=== PATIENT | female | born 1945 | race Caucasian/White ===

== ENCOUNTER 2018-02-16 07:05 | Emergency (ER) | payer MEDICARE, BC ==
[2018-02-16] MEDS: HYDROcodone/APAP 5/325MG 1 TAB TABLET PO (07:55)
== END 2018-02-16 09:08 | disposition home or self-care (01) ==
LOC: ER 07:05
DX: M25.552 Pain in left hip (principal); I10 Essential (primary) hypertension; E78.00 Pure hypercholesterolemia, unspecified
CPT/HCPCS: 73521; 99284

== ENCOUNTER 2018-02-20 07:11 | Emergency (ER) | payer MEDICARE, BC ==
[2018-02-20] MEDS: KETOROLAC 60 MG/2 ML INJ. IM (08:04)
[2018-02-20] MEDS: DEXAMETHASONE SOD PHOS 20 MG/5 ML VIAL. IM (08:05)
[2018-02-20] MEDS: fentaNYL PF VIAL 100 MCG/2 ML VIAL IM (08:06)
== END 2018-02-20 08:44 | disposition home or self-care (01) ==
LOC: ER 08:44
DX: M25.552 Pain in left hip (principal); F41.9 Anxiety disorder, unspecified; E78.00 Pure hypercholesterolemia, unspecified; I10 Essential (primary) hypertension
CPT/HCPCS: 96372; 99284; J1100; J1885; J3010

== ENCOUNTER → 2018-03-02 | Outpatient (CLI) | payer MEDICARE, BC | END | disposition home or self-care (01) | LOC: KCIC MRI 14:23 | DX: S76.011A Strain of muscle, fascia and tendon of right hip, initial encounter (principal); M53.3 Sacrococcygeal disorders, not elsewhere classified; M47.896 Other spondylosis, lumbar region; X58.XXXA Exposure to other specified factors, initial encounter; Y93.89 Activity, other specified; Y92.89 Other specified places as the place of occurrence of the external cause; Y99.8 Other external cause status | CPT/HCPCS: 72195 ==

== ENCOUNTER 2018-04-28 08:52 | Emergency (ER) | payer MEDICARE, BC ==
[2018-04-28 09:21] LABS: BILIRUBIN,URINE NEGATIVE (NEG); CLARITY,URINE CLEAR; COLOR,URINE YELLOW; GLUCOSE,URINE NEGATIVE (NEG); NITRITE,URINE NEGATIVE (NEG); PROTEIN,URINE NEGATIVE (NEG-TRACE); UROBILINOGEN,URINE 0.2 mg/dL (0.2 mg/dL)
[2018-04-28 09:39] LABS: BACTERIA,URINE 0 /HPF (0-FEW); RBC,URINE 0 /HPF (0-2); SQUAMOUS EPITHELIAL CELL,UR OCC /LPF; WBC,URINE 0 /HPF (0-4)
[2018-04-28 09:48] LABS: ADD MAN DIFF? NO
[2018-04-28 09:55] LABS: BASO # 0.1 x10^3/uL (0.0-0.2); BASO % 1 % (0-3); EOS % 0 % (0-3); HEMATOCRIT 41.4 % (36.0-47.0); HEMOGLOBIN 14.2 g/dL (12.0-15.5); LYMPH # 1.5 x10^3/uL (1.0-4.8); LYMPH % 21 % (24-48); MEAN CORPUSCULAR HEMOGLOBIN 33 pg (25-35); MEAN CORPUSCULAR HGB CONC 34 g/dL (31-37); MEAN CORPUSCULAR VOLUME 94 fL (79-100); MONO # 0.7 x10^3/uL (0.0-1.1); MONO % 9 % (0-9); NEUT # 5.1 x10^3uL (1.8-7.7); NEUT % 70 % (31-73); PLATELET COUNT 182 x10^3/uL (140-400); RED BLOOD COUNT 4.39 x10^6/uL (3.50-5.40); RED CELL DISTRIBUTION WIDTH 13.8 % (11.5-14.5); WHITE BLOOD COUNT 7.4 x10^3/uL (4.0-11.0)
[2018-04-28 10:07] LABS: ANION GAP 13 (6-14); BLOOD UREA NITROGEN 9 mg/dL (7-20); BUN/CREATININE RATIO 11 (6-20); CALCIUM 9.7 mg/dL (8.5-10.1); CARBON DIOXIDE 21 mmol/L (21-32); CHLORIDE 101 mmol/L (98-107); CREATININE 0.8 mg/dL (0.6-1.0); GFR 70.3; GLUCOSE 120 mg/dL (70-99); POTASSIUM 3.4 mmol/L (3.5-5.1); SODIUM 135 mmol/L (136-145)
[2018-04-28 10:15] LABS: ALBUMIN/GLOBULIN RATIO 1.3 (1.0-1.7); ALK PHOS 65 U/L (46-116); ALT (SGPT) 25 U/L (14-59); AST (SGOT) 21 U/L (15-37); MAGNESIUM 2.3 mg/dL (1.8-2.4); TOTAL BILIRUBIN 0.8 mg/dL (0.2-1.0); TOTAL PROTEIN 7.1 g/dL (6.4-8.2)
[2018-04-28 10:16] LABS: TROPONINI < 0.017 ng/mL (0.000-0.055)
[2018-04-28 10:20] LABS: FREE T4 1.39 ng/dL (0.76-1.46)
[2018-04-28 10:20] LABS: THYROID STIM HORMONE (TSH) 1.494 uIU/mL (0.358-3.74)
[2018-04-28 10:21] LABS: LACTIC ACID 2.3 mmol/L (0.4-2.0)
[2018-04-28 10:27] LABS: CKMB INDEX 1.2 % (0-4); CKMB MASS 1.1 ng/mL (0.0-3.6); CREATINE KINASE 92 U/L (26-192)
[2018-04-28] MEDS: POTASSIUM CHLORIDE 20 MEQ TABLET.ER. PO (11:04)
== END 2018-04-28 11:24 | disposition home or self-care (01) ==
LOC: ER 08:52
DX: F41.9 Anxiety disorder, unspecified (principal); I10 Essential (primary) hypertension; R53.1 Weakness; E78.00 Pure hypercholesterolemia, unspecified
CPT/HCPCS: 36415; 80053; 81001; 82553; 83605; 83735; 84439; 84443; 84484; 85025; 93005; 96374; 99285-25; J2060

== ENCOUNTER 2020-03-25 10:56 | Emergency (ER) | payer MEDICARE, BC ==
[~2020-03-25] VITALS: Ht 172.7 cm; Wt 80.0 kg
[~2020-03-25 10:56] MED LIST: CYCL10TA2 PO; HYDR-3164 PO; METH4TAB2 PO; NAPR220C4 PO
[2020-03-25] MEDS ORDERED: IV NORMAL SALINE 1000ML BAG 1,000 ML IV ONE (12:15)
[2020-03-25 12:33] LABS: BASO # 0.1 x10^3/uL (0.0-0.2); BASO % 1 % (0-3); EOS # 0.1 x10^3/uL (0.0-0.7); EOS % 1 % (0-3); HEMATOCRIT 40.4 % (36.0-47.0); HEMOGLOBIN 13.7 g/dL (12.0-15.5); LYMPH # 1.7 x10^3/uL (1.0-4.8); LYMPH % 28 % (24-48); MEAN CORPUSCULAR HEMOGLOBIN 32 pg (25-35); MEAN CORPUSCULAR HGB CONC 34 g/dL (31-37); MEAN CORPUSCULAR VOLUME 94 fL (79-100); MONO # 0.5 x10^3/uL (0.0-1.1); MONO % 8 % (0-9); NEUT # 3.8 x10^3/uL (1.8-7.7); NEUT % 62 % (31-73); PLATELET COUNT 159 x10^3/uL (140-400); RED BLOOD COUNT 4.32 x10^6/uL (3.50-5.40); RED CELL DISTRIBUTION WIDTH 13.6 % (11.5-14.5); WHITE BLOOD COUNT 6.2 x10^3/uL (4.0-11.0)
[2020-03-25 12:44] LABS: CALCIUM 9.1 mg/dL (8.5-10.1); CREATININE 0.9 mg/dL (0.6-1.0); POTASSIUM 3.7 mmol/L (3.5-5.1)
[2020-03-25 12:50] LABS: ALBUMIN 3.7 g/dL (3.4-5.0); ALBUMIN/GLOBULIN RATIO 1.3 (1.0-1.7); TOTAL BILIRUBIN 0.4 mg/dL (0.2-1.0); TOTAL PROTEIN 6.6 g/dL (6.4-8.2)
[2020-03-25] MEDS ORDERED: CONTRAST GIVEN. MC PRN (13:30)
[2020-03-25] MEDS ORDERED: IOHEXOL 300 MG/ML 100ML VIAL. IV ONE (13:30)
--- NOTE | 2020-03-25 13:58 | RAD ---
CT abdomen pelvis with contrast. HISTORY: Right-sided abdominal pain, diarrhea CT scan of the abdomen pelvis was done using 75 mL's Omnipaque 300 contrast. There is mild atelectasis in the lung bases without other infiltrates. 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 There is mild degenerative spondylolisthesis at L4-5. There is slight spondylolisthesis at L3-4. There is spinal stenosis at L3-4 and L4-5. There is fatty change in the liver without a focal lesion. There is a large hiatus hernia. Spleen and adrenal glands are normal. Pancreas is normal. Bladder is distended. There is mild right hydronephrosis. A ureteral calculus is not identified. There is a 2 mm intrarenal calculus in the lower right kidney. There is no adenopathy. There is no bowel obstruction or ascites. Patient's had a hysterectomy. The appendix is not identified. There is moderate stool in the colon. I do not see CT evidence of a colitis or diverticulitis. IMPRESSION: 1. Distended bladder. 2. Mild right hydronephrosis. 3. Small intrarenal calculus right kidney, no ureteral calculus noted. 4. Fatty change in the liver. 5. Large hiatus hernia. 6. Mild atelectasis in the lung bases PQRS Compliance Statement: One or more of the following individualized dose reduction techniques were utilized for this examination: 1. Automated exposure control 2. Adjustment of the mA and/or kV according to patient size 3. Use of iterative reconstruction technique Electronically signed by: Darrell Jimenez MD (03/25/2020 1:55 PM) [id number]
[2020-03-25 14:07] VITALS: BP 170/72
[2020-03-25] MEDS ORDERED: SULF1TAB24 PO (14:57)
--- NOTE | 2020-03-25 14:58 | PHYS DOC ---
Past Medical History Past Medical History: Anxiety, High Cholesterol, Hypertension Past Surgical History: No Surgical History Smoking Status: Never Smoker Alcohol Use: None Drug Use: None General Adult EDM: Chief Complaint: DIARRHEA HPI: HPI: Patient is a 75 year old female who presented to the ER today for evaluation of right side abdominal pain that started 2 days ago. It was sharp in nature, radiating to right lower groin area. Patient took some ibuprofen and got better then later she has some diarrhea and continue to have diarrhea so she came here for evaluation. Patient denied any fever, no nausea or vomiting, no frequency or urgency. Patient denied any cough, no chest pain, no shortness of air. Patient denied any sick contact recently, not on any antibiotic recently. Review of Systems: Review of Systems: Constitutional: Denies fever or chills. [] Eyes: Denies change in visual acuity. [] HENT: Denies nasal congestion or sore throat. [] Respiratory: Denies cough or shortness of breath. [] Cardiovascular: Denies chest pain or edema. [] GI: Positive for abdominal pain,no nausea, vomiting, bloody stools, positive for diarrhea. [] : Denies dysuria. [] Musculoskeletal: Denies back pain or joint pain. [] Integument: Denies rash. [] Neurologic: Denies headache, focal weakness or sensory changes. [] Endocrine: Denies polyuria or polydipsia. [] Lymphatic: Denies swollen glands. [] Psychiatric: Denies depression or anxiety. [] Heart Score: Risk Factors: Risk Factors: DM, Current or recent (<one month) smoker, HTN, HLP, family history of CAD, obesity. Risk Scores: Score 0 - 3: 2.5% MACE over next 6 weeks - Discharge Home Score 4 - 6: 20.3% MACE over next 6 weeks - Admit for Clinical Observation Score 7 - 10: 72.7% MACE over next 6 weeks - Early Invasive Strategies Current Medications: Current Medications Medications (Trade) Dose Ordered Sig/Zelalem Start Time Stop Time Status Last Admin Dose Admin Info (CONTRAST GIVEN -- Rx MONITORING) 1 each PRN DAILY PRN 03/25/20 13:30 03/27/20 13:29 Iohexol (Omnipaque 300 Mg/ml) 75 ml 1X ONCE 03/25/20 13:30 03/25/20 13:31 DC 03/25/20 13:44 75 ML Sodium Chloride 1,000 ml @ 1,000 mls/hr 1X ONCE 03/25/20 12:15 03/25/20 13:14 DC 03/25/20 12:15 1,000 MLS/HR Allergies: Allergies: Allergies Coded Allergies Type Severity Reaction Last Updated Verified No Known Drug Allergies 02/16/18 No Physical Exam: PE: Constitutional: Well developed, well nourished, no acute distress, non-toxic appearance. [] HENT: Normocephalic, atraumatic, bilateral external ears normal, oropharynx moist, no oral exudates, nose normal. [] Eyes: PERRLA, EOMI, conjunctiva normal, no discharge. [] Neck: Normal range of motion, no tenderness, supple, no stridor. [] Cardiovascular:Heart rate regular rhythm, no murmur [] Lungs & Thorax: Bilateral breath sounds clear to auscultation [] Abdomen: Bowel sounds normal, soft, there is tenderness to palpation in RLQ, no masses, no pulsatile masses. [] Skin: Warm, dry, no erythema, no rash. [] Back: No tenderness, no CVA tenderness. [] Extremities: No tenderness, no cyanosis, no clubbing, ROM intact, no edema. [] Neurologic: Alert and oriented X 3, normal motor function, normal sensory fu nction, no focal deficits noted. [] Psychologic: Affect normal, judgement normal, mood normal. [] Current Patient Data: Labs: Laboratory Tests Test 03/25/20 12:25 White Blood Count 6.2 x10^3/uL (4.0-11.0) Red Blood Count 4.32 x10^6/uL (3.50-5.40) Hemoglobin 13.7 g/dL (12.0-15.5) Hematocrit 40.4 % (36.0-47.0) Mean Corpuscular Volume 94 fL (79-100) Mean Corpuscular Hemoglobin 32 pg (25-35) Mean Corpuscular Hemoglobin Concent 34 g/dL (31-37) Red Cell Distribution Width 13.6 % (11.5-14.5) Platelet Count 159 x10^3/uL (140-400) Neutrophils (%) (Auto) 62 % (31-73) Lymphocytes (%) (Auto) 28 % (24-48) Monocytes (%) (Auto) 8 % (0-9) Eosinophils (%) (Auto) 1 % (0-3) Basophils (%) (Auto) 1 % (0-3) Neutrophils # (Auto) 3.8 x10^3/uL (1.8-7.7) Lymphocytes # (Auto) 1.7 x10^3/uL (1.0-4.8) Monocytes # (Auto) 0.5 x10^3/uL (0.0-1.1) Eosinophils # (Auto) 0.1 x10^3/uL (0.0-0.7) Basophils # (Auto) 0.1 x10^3/uL (0.0-0.2) Sodium Level 135 mmol/L (136-145) L Potassium Level 3.7 mmol/L (3.5-5.1) Chloride Level 99 mmol/L (98-107) Carbon Dioxide Level 27 mmol/L (21-32) Anion Gap 9 (6-14) Blood Urea Nitrogen 17 mg/dL (7-20) Creatinine 0.9 mg/dL (0.6-1.0) Estimated GFR (Cockcroft-Gault) 61.0 BUN/Creatinine Ratio 19 (6-20) Glucose Level 134 mg/dL (70-99) H Calcium Level 9.1 mg/dL (8.5-10.1) Magnesium Level 2.0 mg/dL (1.8-2.4) Total Bilirubin 0.4 mg/dL (0.2-1.0) Aspartate Amino Transferase (AST) 24 U/L (15-37) Alanine Aminotransferase (ALT) 31 U/L (14-59) Alkaline Phosphatase 72 U/L (46-116) Total Protein 6.6 g/dL (6.4-8.2) Albumin 3.7 g/dL (3.4-5.0) Albumin/Globulin Ratio 1.3 (1.0-1.7) Laboratory Tests 03/25/20 12:25 Laboratory Tests 03/25/20 12:25 Vital Signs: Vital Signs Date Time Temp Pulse Resp B/P (MAP) Pulse Ox O2 Delivery O2 Flow Rate FiO2 03/25/20 12:10 97.7 69 18 162/77 (105) 96 Room Air 97.7 EKG: EKG: [] Radiology/Procedures: Radiology/Procedures: [facility] [address] [place] [address] IMAGING REPORT Signed PATIENT: MIGEL PAUL ACCOUNT: [id number] : 1945 LOCATION: ER AGE: 75 SEX: F EXAM STATUS: REG ER ORD. PHYSICIAN: HUAN MARTINEZ DO REASON: right side abdominal pain, diarrhea x several days PROCEDURE: CT ABD PELV W/ IV CONTRST ONLY CT abdomen pelvis with contrast. HISTORY: Right-sided abdominal pain, diarrhea CT scan of the abdomen pelvis was done using 75 mL's Omnipaque 300 contrast. There is mild atelectasis in the lung bases without other infiltrates. 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 There is mild degenerative spondylolisthesis at L4-5. There is slight spondylolisthesis at L3-4. There is spinal stenosis at L3-4 and L4-5. There is fatty change in the liver without a focal lesion. There is a large hiatus hernia. Spleen and adrenal glands are normal. Pancreas is normal. Bladder is distended. There is mild right hydronephrosis. A ureteral calculus is not identified. There is a 2 mm intrarenal calculus in the lower right kidney. There is no adenopathy. There is no bowel obstruction or ascites. Patient's had a hysterectomy. The appendix is not identified. There is moderate stool in the colon. I do not see CT evidence of a colitis or diverticulitis. IMPRESSION: 1. Distended bladder. 2. Mild right hydronephrosis. 3. Small intrarenal calculus right kidney, no ureteral calculus noted. 4. Fatty change in the liver. 5. Large hiatus hernia. 6. Mild atelectasis in the lung bases PQRS Compliance Statement: One or more of the following individualized dose reduction techniques were utilized for this examination: 1. Automated exposure control 2. Adjustment of the mA and/or kV according to patient size 3. Use of iterative reconstruction technique Electronically signed by: Darrell Jimenez MD (03/25/2020 1:55 PM) [id number] DICTATED and SIGNED BY: DARRELL JIMENEZ MD DATE: 03/25/20 2481 [] Course & Med Decision Making: Course & Med Decision Making Pertinent Labs and Imaging studies reviewed. (See chart for details) [] Jaydon Disclaimer: Jaydon Disclaimer: This electronic medical record was generated, in whole or in part, using a voice recognition dictation system. Departure Departure Impression: Primary Impression: Diarrhea Additional Impression: Abdominal pain Disposition: HOME, SELF-CARE Condition: STABLE Referrals: LEYLA BARNARD MD (PCP) follow up with your doctor as needed Patient Instructions: Diarrhea Scripts Sulfamethoxazole/Trimethoprim (BACTRIM DS TABLET) 1 Each Tablet 1 EACH PO BID for 3 Days, #6 TAB Prov: HUAN MARTINEZ DO 03/25/20 HUAN MARTINEZ DO March 25, 2020 14:57
== END 2020-03-25 15:00 | disposition home or self-care (01) ==
LOC: ER 10:56
DX: R19.7 Diarrhea, unspecified (principal); E78.00 Pure hypercholesterolemia, unspecified; I10 Essential (primary) hypertension
CPT/HCPCS: 36415; 74177; 80053; 83735; 85025; 96360; 99285; J7030; Q9967

== ENCOUNTER 2020-06-30 12:14 | Emergency (ER) | payer MEDICARE, BC ==
[~2020-06-30] VITALS: Ht 162.6 cm; Wt 68.1 kg
[~2020-06-30 12:14] MED LIST changes: +SULF1TAB24 PO
--- NOTE | 2020-06-30 12:55 | PHYS DOC ---
Past Medical History Past Medical History: Anxiety, High Cholesterol, Hypertension (EVAN IGLESIAS APRN) Past Surgical History: No Surgical History (EVAN IGLESIAS APRN) Smoking Status: Never Smoker Alcohol Use: None Drug Use: None (EVAN IGLESIAS APRN) General Adult EDM: Chief Complaint: FATIGUE HPI: HPI: Patient is a 75 year old female who presents with last week she states she has been feeling very tired and just generalized weakness. She states that she called her doctor this morning and he stated to go to emergency room to be evaluated. She states that she did have an inner ear infection a couple weeks ago and I put her on antibiotic for her. She is at that time she was having some dizziness. She states she does feel dizzy at times but only in the morning when she first gets up and then goes away. She does not feel dizzy right now. Patient states her only complaint is that she is having fatigue and just feeling sleepy and generalized weakness. She denies nausea, vomiting, abdominal pain, dysuria, headache, focal weakness, vision changes, chest pain, shortness of breath, cough, fever, numbness or tingling. She denies any pain. (EVAN IGLESIAS DIRECTOR OF PHILANTHROPY) Review of Systems: Review of Systems: Constitutional: Denies fever or chills. Fatigue. [] Eyes: Denies change in visual acuity. [] HENT: Denies nasal congestion or sore throat. [] Respiratory: Denies cough or shortness of breath. [] Cardiovascular: Denies chest pain or edema. [] GI: Denies abdominal pain, nausea, vomiting, bloody stools or diarrhea. [] : Denies dysuria. [] Musculoskeletal: Denies back pain or joint pain. [] Integument: Denies rash. [] Neurologic: Denies headache. Generalized weakness or denies sensory changes. [] Endocrine: Denies polyuria or polydipsia. [] Lymphatic: Denies swollen glands. [] Psychiatric: Denies depression or anxiety. [] (EVAN IGLESIAS APRN) Heart Score: Risk Factors: Risk Factors: DM, Current or recent (<one month) smoker, HTN, HLP, family history of CAD, obesity. Risk Scores: Score 0 - 3: 2.5% MACE over next 6 weeks - Discharge Home Score 4 - 6: 20.3% MACE over next 6 weeks - Admit for Clinical Observation Score 7 - 10: 72.7% MACE over next 6 weeks - Early Invasive Strategies (EVAN IGLESIAS APRN) Allergies: Allergies: Allergies Coded Allergies Type Severity Reaction Last Updated Verified No Known Drug Allergies 02/16/18 No (EVAN IGLESIAS APRN) Physical Exam: PE: Constitutional: Well developed, well nourished, no acute distress, non-toxic appearance. [] HENT: Normocephalic, atraumatic, bilateral external ears normal, oropharynx moist, no oral exudates, nose normal. [] Eyes: PERRLA, EOMI, conjunctiva normal, no discharge. [] Neck: Normal range of motion, no tenderness, supple, no stridor. [] Cardiovascular:Heart rate regular rhythm, no murmur [] Lungs & Thorax: Bilateral breath sounds clear to auscultation [] Abdomen: Bowel sounds normal, soft, no tenderness, no masses, no pulsatile masses. [] Skin: Warm, dry, no erythema, no rash. [] Back: No tenderness, no CVA tenderness. [] Extremities: No tenderness, no cyanosis, no clubbing, ROM intact, no edema. [] Neurologic: Alert and oriented X 3, normal motor function, normal sensory function, no focal deficits noted. [] Psychologic: Affect normal, judgement normal, mood normal. [] (EVAN IGLESIAS APRN) EKG: EK and read by Dr Kyle as Sinus Rhythm and no STEMI[] (EVAN IGLESIAS APRN) Radiology/Procedures: Radiology/Procedures: [] Impression: [facility] [address] [place] [address] IMAGING REPORT Signed PATIENT: MIGEL PAUL ACCOUNT: [id number] : 1945 LOCATION: ER AGE: 75 SEX: F EXAM STATUS: PRE ER ORD. PHYSICIAN: EVAN IGLESIAS APRN REASON: FATIGUE X1 WEEK PROCEDURE: PORTABLE CHEST 1V EXAM: CHEST ONE VIEW. HISTORY: Fatigue. COMPARISON: None. FINDINGS: A frontal view of the chest is obtained. There are no confluent infiltrates. There is no pneumothorax or pleural effusion. The heart is not enlarged. There is a moderate to large hiatal hernia. IMPRESSION: 1. Moderate to large hiatal hernia. No confluent infiltrates. Electronically signed by: Sharifa Cadena MD (06/30/2020 1:02 PM) [id number] DICTATED and SIGNED BY: EMILY CADENA MD DATE: 06/30/20 1302 (EVAN IGLESIAS APRN) Course & Med Decision Making: Course & Med Decision Making Pertinent Labs and Imaging studies reviewed. (See chart for details) COVID-19 CRITERIA: The patient was evaluated during the global COVID-19 pandemic, and that diagnosis was suspected/considered upon their initial pr esentation. Their evaluation, treatment and testing was consistent with current guidelines for patients who present with complaints or symptoms that may be related to COVID-19. See HPI. Alert and oriented x4. Ambulatory with a steady gait. No focal weaknesses. Speaks in full sentences. Abdomen is soft and nontender. Skin pink warm and dry. Vital signs are within normal limits. No extremity edema. Lungs are clear to auscultation all lobes. Denies being around antibiotics is b een sick or travel. States she has been eating and drinking appropriately. Blood work unremarkable. X-ray shows no acute findings. Urinalysis shows no infection. I will go ahead and test her for COVID due to the fatigue and sleepiness. Patient to follow-up with her primary care physician. [] (EVAN IGLESIAS APRN) Course & Med Decision Making I have reviewed the PA/JOB COST ESTIMATOR's note and Plan of Care. I was available for consultation as needed during the patient's visit in the emergency department. I agree with the clinical impression, plans and disposition. (RICHARD KYLE MD) Dragon Disclaimer: Dragon Disclaimer: This electronic medical record was generated, in whole or in part, using a voice recognition dictation system. (EVAN IGLESIAS APRN) COVID-19 Patient Risks: Age 65 or older: Yes Sign of co-morbidity: Yes Exp to person + for COVID: No Exp to PUI: No Travel from affected area: No Lower respiratory symptoms: No Fever: No Other: Yes (FATIGUE) (EVAN IGLESIAS DIRECTOR OF PHILANTHROPY) PPE Use: Full PPE with N95 mask or PAPR: Yes (EVAN IGLESIAS DIRECTOR OF PHILANTHROPY) Departure Departure Impression: Primary Impression: Fatigue Qualified Codes: R53.83 - Other fatigue Disposition: 01 HOME, SELF-CARE Condition: STABLE Referrals: LEYLA BARNARD MD (PCP) Patient Instructions: Fatigue Additional Instructions: Follow-up with your primary care physician as soon as possible. Continue taking all your medications as prescribed. Drink plenty of fluids and eat appropriately. Return for any new or worsening symptoms. You have been tested for or diagnosed with COVID-19. It is an infection caused by a new type of coronavirus. COVID-19 will cause cold-like or mild flu symptoms in most. It can cause more severe symptoms like problems breathing in some. There is no treatment for COVID-19. The body will clear the infection over time. Self-care will help to ease discomfort. Steps to Take: Self-Care Rest as needed. Healthy habits may help you feel better. Steps include: Choose healthy foods including fruits and vegetables. Drink water throughout the day. Get plenty of sleep each night. If you smoke, try to quit. It may ease breathing. Avoid alcohol. Keep Others Healthy The virus can spread to others. Droplets are released every time you sneeze or cough. The droplets can get into the mouth, nose, or eyes of people near you and lead to infection. To lower the chances of spreading COVID-19 to others: Stay at home until your doctor has said it is safe to leave. If you tested positive this will mean staying isolated until both of the following are true: At least 7 days have passed since the start of illness. You are free of fever for at least 72 hours without the use of medicine. During this time: - Avoid public areas, events, or transportation. Do not return to work or [employer] until your doctor has said it is safe to do so. - Call ahead if you need to go to a medical center. Let them know you may have COVID-19. It will help them guide you where to go. They may also ask you to wear a facemask when you come to the office. - If you call for emergency medical services, let them know you may have COVID- 19. While at home: - Try to avoid close contact with others. Stay about 6 feet away. - If possible, spend most of your time in a separate room from others. - Use a face mask if you will be in close contact with others such as sharing a room or vehicle. - Have someone wipe down common surfaces in the home. Use household wheel truing machine tender every day on areas like doorknobs, counters, or sinks. - Cough or sneeze into a tissue. Throw the tissue away right after use. If a tissue is not available, cough or sneeze into your elbow. - Wash your hands often. Wash them after sneezing or coughing. Use soap and water and wash for at least 20 seconds. Alcohol based hand peanut cleaner can be used if soap and water is not available. - Do not prepare food for others. Avoid sharing personal items like forks, spoons, or toothbrushes. - Avoid close contact with pets while you are sick. There is no evidence of the virus passing to pets. This is a safety step until more is known about this virus. Isolation can be frustrating. Social interaction can help. Keep in touch with friends and family through phone and tech options. You can still interact with others in your home, just keep a safe distance of about 6 feet. Follow-up: Your doctors office will check in with you to see if there are any changes in your health. You may be asked to keep track of symptoms to share with them. They will also let you know when you are clear to be in public again. Problems to Look Out For: Contact your doctor if your recovery is not going as you expect. Get emergency care if you have problems such as: - Trouble breathing - Nonstop chest pain or pressure - Changes in awareness, confusion, or problems waking - Lips or face have bluish color - Worsening of symptoms If you think you have an emergency, call for emergency medical services right away. As taken from [facility] Justicifation of Admission Dx: Justifications for Admission: Justification of Admission Dx: N/A (EVAN IGLESIAS APRN) EVAN IGLESIAS APRN Jun 30, 2020 12:55 RICHARD KYLE MD Jun 30, 2020 14:01
[2020-06-30 12:57] LABS: BILIRUBIN,URINE NEGATIVE (NEG); CLARITY,URINE CLEAR; COLOR,URINE YELLOW; NITRITE,URINE NEGATIVE (NEG); PROTEIN,URINE NEGATIVE (NEG-TRACE); UROBILINOGEN,URINE 0.2 mg/dL (0.2 mg/dL)
[2020-06-30 13:02] LABS: AMPHETAMINE/METHAMPHETAMINE NEG (NEG); BARBITURATES NEG (NEG); BENZODIAZEPINES POS (NEG); CANNABINOIDS NEG (NEG); COCAINE NEG (NEG); METHADONE NEG (NEG); OPIATES NEG (NEG); PHENCYCLIDINE NEG (NEG)
[2020-06-30 13:02] LABS: BASO # 0.1 x10^3/uL (0.0-0.2); BASO % 1 % (0-3); EOS # 0.1 x10^3/uL (0.0-0.7); EOS % 2 % (0-3); HEMATOCRIT 39.3 % (36.0-47.0); HEMOGLOBIN 13.6 g/dL (12.0-15.5); LYMPH # 1.9 x10^3/uL (1.0-4.8); LYMPH % 31 % (24-48); MEAN CORPUSCULAR HEMOGLOBIN 33 pg (25-35); MEAN CORPUSCULAR HGB CONC 35 g/dL (31-37); MEAN CORPUSCULAR VOLUME 95 fL (79-100); MONO # 0.7 x10^3/uL (0.0-1.1); MONO % 11 % (0-9); NEUT # 3.4 x10^3/uL (1.8-7.7); NEUT % 55 % (31-73); PLATELET COUNT 158 x10^3/uL (140-400); RED BLOOD COUNT 4.14 x10^6/uL (3.50-5.40); RED CELL DISTRIBUTION WIDTH 14.5 % (11.5-14.5); WHITE BLOOD COUNT 6.2 x10^3/uL (4.0-11.0)
[2020-06-30 13:03] LABS: CALCIUM 9.1 mg/dL (8.5-10.1); GFR 54.1; POTASSIUM 3.4 mmol/L (3.5-5.1)
--- NOTE | 2020-06-30 13:05 | RAD ---
EXAM: CHEST ONE VIEW. HISTORY: Fatigue. COMPARISON: None. FINDINGS: A frontal view of the chest is obtained. There are no confluent infiltrates. There is no pneumothorax or pleural effusion. The heart is not enlarged. There is a moderate to large hiatal hernia. IMPRESSION: 1. Moderate to large hiatal hernia. No confluent infiltrates. Electronically signed by: Sharifa Cadena MD (06/30/2020 1:02 PM) [id number]
[2020-06-30 13:08] LABS: ALBUMIN 3.6 g/dL (3.4-5.0); ALBUMIN/GLOBULIN RATIO 1.1 (1.0-1.7); TOTAL BILIRUBIN 0.3 mg/dL (0.2-1.0); TOTAL PROTEIN 6.8 g/dL (6.4-8.2)
[2020-06-30 13:09] LABS: PROTHROMBIN TIME PATIENT 13.5 SEC (11.7-14.0)
[2020-06-30 13:44] LABS: SQUAMOUS EPITHELIAL CELL,UR FEW /LPF
[2020-06-30 13:45] LABS: BACTERIA,URINE 0 /HPF (0-FEW); RBC,URINE 0 /HPF (0-2); WBC,URINE 0 /HPF (0-4)
[2020-06-30 14:03] VITALS: BP 146/70
--- NOTE | 2020-06-30 15:51 | EKG ---
[facility] [address] [place] [address] Test Date: 2020-06-30 Test Time: 12:52:33 Pat Name: MIGEL PAUL Department: Room: Gender: F [employer]esy Car Driver: : 1945 Requested By: EVAN IGLESIAS Order Number: [id number] Reading MD: Measurements Intervals [place] Rate: 75 P: 35 PA: 168 QRS: -13 QRSD: 96 T: -4 QT: 410 QTc: 461 Interpretive Statements SINUS RHYTHM LEFTWARD AXIS R-S TRANSITION ZONE IN V LEADS DISPLACED TO THE LEFT QRS(T) CONTOUR ABNORMALITY CONSISTENT WITH INFERIOR INFARCT PROBABLY OLD ABNORMAL ECG RI6.02 No previous ECG available for comparison
--- NOTE | 2020-07-02 09:37 | NUR ---
IP: Informed pt of negative COVID results. Pt verbalized understanding. All questions answered.
== END 2020-06-30 14:19 | disposition home or self-care (01) ==
LOC: ER 12:14
DX: R53.83 Other fatigue (principal); Z20.828 Contact with and (suspected) exposure to other viral communicable diseases; R53.1 Weakness; R42 Dizziness and giddiness; F41.9 Anxiety disorder, unspecified; E78.00 Pure hypercholesterolemia, unspecified; I10 Essential (primary) hypertension
CPT/HCPCS: 36415; 71045; 80053; 80307; 81001; 83880; 84484; 85025; 85610; 93005; 99285; U0003

== ENCOUNTER 2021-01-27 11:44 | Emergency (ER) | payer MEDICARE ==
[~2021-01-27] VITALS: Ht 172.7 cm; Wt 84.0 kg
--- NOTE | 2021-01-27 12:24 | PHYS DOC ---
Past Medical History Past Medical History: Anxiety, High Cholesterol, Hypertension Past Surgical History: Hysterectomy Smoking Status: Never Smoker Alcohol Use: None Drug Use: None Adult General Chief Complaint Chief Complaint: WEAKNESS/GENERALIZED HPI HPI Patient is a 75 year old female with a past medical history of hypertension and hyperlipidemia now presenting the emergency department for new onset of shakiness. Patient states that during this month she had intermittent episodes where she feels weak and as though her hands and legs are shaking and feeling uncoordinated. Patient states that approximately 1/2 weeks ago she was seen by her primary care physician who had diagnosed her with a urinary tract infection after obtaining a urinalysis and placed the patient on a week and a half of antibiotics. Patient states that she took the last dose 2 days ago and is not feeling any better. Patient denies any nausea, vomiting, abdominal pain, dizziness, lightheadedness, dysuria or pyuria. Review of Systems Review of Systems Constitutional: Denies fever or chills [] Eyes: Denies change in visual acuity, redness, or eye pain [] HENT: Denies nasal congestion or sore throat [] Respiratory: Denies cough or shortness of breath [] Cardiovascular: No additional information not addressed in HPI [] GI: Denies abdominal pain, nausea, vomiting, bloody stools or diarrhea [] : Denies dysuria or hematuria [] Musculoskeletal: Denies back pain or joint pain [] Integument: Denies rash or skin lesions [] Neurologic: Denies headache, focal weakness or sensory changes [] Endocrine: Denies polyuria or polydipsia [] All other systems were reviewed and found to be within normal limits, except as documented in this note. Allergies Allergies Allergies Coded Allergies Type Severity Reaction Last Updated Verified No Known Drug Allergies 02/16/18 No Physical Exam Physical Exam Constitutional: Well developed, well nourished, no acute distress, non-toxic appearance. [] HENT: Normocephalic, atraumatic, bilateral external ears normal, oropharynx moist, no oral exudates, nose normal. [] Eyes: PERRLA, EOMI, conjunctiva normal, no discharge. [] Neck: Normal range of motion, no tenderness, supple, no stridor. [] Cardiovascular:Heart rate regular rhythm, no murmur [] Lungs & Thorax: Bilateral breath sounds clear to auscultation [] Abdomen: Bowel sounds normal, soft, no tenderness, no masses, no pulsatile masses. [] Skin: Warm, dry, no erythema, no rash. [] Back: No tenderness, no CVA tenderness. [] Extremities: No tenderness, no cyanosis, no clubbing, ROM intact, no edema. [] Neurologic: Alert and oriented X 3, normal motor function, normal sensory function, no focal deficits noted. [] Psychologic: Affect normal, judgement normal, mood normal. [] Current Patient Data Vital Signs Vital Signs Date Time Temp Pulse Resp B/P (MAP) Pulse Ox O2 Delivery O2 Flow Rate FiO2 01/27/21 11:52 98.1 62 15 170/86 (114) 95 Room Air 98.1 Lab Values Laboratory Tests Test 01/27/21 11:48 01/27/21 12:32 Urine Collection Type Unknown Urine Color Yellow Urine Clarity Clear Urine pH 7.5 (<5.0-8.0) Urine Specific Bowers <=1.005 (1.000-1.030) Urine Protein Negative mg/dL (NEG-TRACE) Urine Glucose (UA) Negative mg/dL (NEG) Urine Ketones (Stick) Negative mg/dL (NEG) Urine Blood Negative (NEG) Urine Nitrite Negative (NEG) Urine Bilirubin Negative (NEG) Urine Urobilinogen Dipstick 0.2 mg/dL (0.2 mg/dL) Urine Leukocyte Esterase Negative (NEG) Urine RBC 0 /HPF (0-2) Urine WBC 0 /HPF (0-4) Urine Squamous Epithelial Cells Few /LPF Urine Bacteria 0 /HPF (0-FEW) White Blood Count 6.6 x10^3/uL (4.0-11.0) Red Blood Count 4.08 x10^6/uL (3.50-5.40) Hemoglobin 13.0 g/dL (12.0-15.5) Hematocrit 38.4 % (36.0-47.0) Mean Corpuscular Volume 94 fL (79-100) Mean Corpuscular Hemoglobin 32 pg (25-35) Mean Corpuscular Hemoglobin Concent 34 g/dL (31-37) Red Cell Distribution Width 13.8 % (11.5-14.5) Platelet Count 149 x10^3/uL (140-400) Neutrophils (%) (Auto) 59 % (31-73) Lymphocytes (%) (Auto) 28 % (24-48) Monocytes (%) (Auto) 11 % (0-9) H Eosinophils (%) (Auto) 1 % (0-3) Basophils (%) (Auto) 1 % (0-3) Neutrophils # (Auto) 3.9 x10^3/uL (1.8-7.7) Lymphocytes # (Auto) 1.9 x10^3/uL (1.0-4.8) Monocytes # (Auto) 0.7 x10^3/uL (0.0-1.1) Eosinophils # (Auto) 0.1 x10^3/uL (0.0-0.7) Basophils # (Auto) 0.1 x10^3/uL (0.0-0.2) Sodium Level 139 mmol/L (136-145) Potassium Level 3.9 mmol/L (3.5-5.1) Chloride Level 103 mmol/L (98-107) Carbon Dioxide Level 28 mmol/L (21-32) Anion Gap 8 (6-14) Blood Urea Nitrogen 11 mg/dL (7-20) Creatinine 1.1 mg/dL (0.6-1.0) H Estimated GFR (Cockcroft-Gault) 48.4 BUN/Creatinine Ratio 10 (6-20) Glucose Level 100 mg/dL (70-99) H Calcium Level 8.7 mg/dL (8.5-10.1) Total Bilirubin 0.4 mg/dL (0.2-1.0) Aspartate Amino Transferase (AST) 27 U/L (15-37) Alanine Aminotransferase (ALT) 49 U/L (14-59) Alkaline Phosphatase 76 U/L (46-116) Total Protein 6.6 g/dL (6.4-8.2) Albumin 3.4 g/dL (3.4-5.0) Albumin/Globulin Ratio 1.1 (1.0-1.7) Laboratory Tests 01/27/21 12:32 Laboratory Tests 01/27/21 12:32 EKG EKG [] Radiology/Procedures Radiology/Procedures [] Course & Med Decision Making Course & Med Decision Making Pertinent Labs and Imaging studies reviewed. (See chart for details) 75-year-old female presenting the emergency department nonspecific weakness without any significant findings on physical exam. Neurologic evaluation normal without any apparent deficits. No significant abdominal tenderness. No fever or vital sign derangements. Labs and urine obtained and were negative. No evidence of urinary tract infection at this time. Patient currently as ymptomatic and without any significant findings on repeat physical exam. Will discharge home with primary care physician follow Jaydon Disclaimer Jaydon Disclaimer This electronic medical record was generated, in whole or in part, using a voice recognition dictation system. Departure Departure Impression: Primary Impression: Weakness Disposition: 01 DC HOME SELF CARE/HOMELESS Condition: GOOD Referrals: LEYLA BARNARD MD (PCP) Patient Instructions: Weakness Additional Instructions: EMERGENCY DEPARTMENT GENERAL DISCHARGE INSTRUCTIONS Thank you for coming to [facility] Emergency Department (ED) today and trusting us with you care. We trust that you had a positive experience in our Emergency Department. If you wish to speak to the department management, you may call the Director at [phone]. YOUR FOLLOW UP INSTRUCTIONS ARE FOLLOWS: 1. Do you have a private Doctor? If you do not have a private doctor, please ask for a resource list of physicians or clinics that may be able to assist you with follow up care. 2. The Emergency Physicain has interpreted your x-rays. The X-Ray specialist will also review them. If there is a change in the findings, you will be notified in 48 hours when at all possible. 3. A lab test or culture has been done, your results will be reviewed and you will be notified if you need a change in treatment. ADDITIONAL INSTRUCTIONS AND INFORMATION: 1. Your care today has been supervised by a physician who is specially trained in emergency care. Many problems require more than one evaluation for a complete diagnosis and treatment. We recommend that you schedule your follow up appointment as r ecommended to ensure complete treatment of you illness or injury. If you are unable to obtain follow up care and continue to have a problem, or if your condition worsens, we recommend that you return to the ED. 2. We are not able to safely determine your condition over the phone nor are we able to give sound medical advice over the phone. For these safety reasons, if you call for medical advice we will ask you to come to the ED for further evaluation. 3. If you have any questions regarding these discharge instructions please call the ED at [phone]. SAFETY INFORMATION: In the interest of safety, wellness, and injury prevention; we encourage you to wear your sealbelt, if you smoke; quite smoking, and we encourage family to use a protective helmet for bicycling and other sporting events that present an increased risk for head injury. IF YOUR SYMPTOMS WORSEN OR NEW SYMPTOMS DEVELOP, OR YOU HAVE CONCERNS ABOUT YOUR CONDITION; OR IF YOUR CONDITION WORSENS WHILE YOU ARE WAITING FOR YOUR FOLLOW UP APPOINTMENT; EITHER CONTACT YOUR PRIMARY CARE DOCTOR, THE PHYSICIAN WHOSE NAME AND NUMBER YOU WERE GIVEN, OR RETURN TO THE ED IMMEDIATELY. SONYA NEVAREZ MD Jan 27, 2021 12:24
[2021-01-27 12:33] LABS: BILIRUBIN,URINE NEGATIVE (NEG); CLARITY,URINE CLEAR; COLOR,URINE YELLOW; NITRITE,URINE NEGATIVE (NEG); PH,URINE 7.5 (<5.0-8.0); PROTEIN,URINE NEGATIVE (NEG-TRACE); UROBILINOGEN,URINE 0.2 mg/dL (0.2 mg/dL)
[2021-01-27 12:42] LABS: BACTERIA,URINE 0 /HPF (0-FEW); RBC,URINE 0 /HPF (0-2); WBC,URINE 0 /HPF (0-4)
[2021-01-27 12:46] LABS: BASO # 0.1 x10^3/uL (0.0-0.2); BASO % 1 % (0-3); EOS # 0.1 x10^3/uL (0.0-0.7); EOS % 1 % (0-3); HEMATOCRIT 38.4 % (36.0-47.0); LYMPH # 1.9 x10^3/uL (1.0-4.8); LYMPH % 28 % (24-48); MEAN CORPUSCULAR HEMOGLOBIN 32 pg (25-35); MEAN CORPUSCULAR HGB CONC 34 g/dL (31-37); MEAN CORPUSCULAR VOLUME 94 fL (79-100); MONO # 0.7 x10^3/uL (0.0-1.1); MONO % 11 % (0-9); NEUT # 3.9 x10^3/uL (1.8-7.7); NEUT % 59 % (31-73); PLATELET COUNT 149 x10^3/uL (140-400); RED BLOOD COUNT 4.08 x10^6/uL (3.50-5.40); RED CELL DISTRIBUTION WIDTH 13.8 % (11.5-14.5); WHITE BLOOD COUNT 6.6 x10^3/uL (4.0-11.0)
[2021-01-27 13:03] LABS: CALCIUM 8.7 mg/dL (8.5-10.1); CREATININE 1.1 mg/dL (0.6-1.0); GFR 48.4; POTASSIUM 3.9 mmol/L (3.5-5.1)
[2021-01-27 13:10] LABS: ALBUMIN 3.4 g/dL (3.4-5.0); ALBUMIN/GLOBULIN RATIO 1.1 (1.0-1.7); TOTAL BILIRUBIN 0.4 mg/dL (0.2-1.0); TOTAL PROTEIN 6.6 g/dL (6.4-8.2)
[2021-01-27 13:45] VITALS: BP 168/82
--- NOTE | 2021-01-27 20:31 | EKG ---
[facility] [address] [place] [address] Test Date: 2021-01-27 Test Time: 13:50:26 Pat Name: MIGEL PAUL Department: Room: Gender: F Manager Systems: : 1945 Requested By: SONYA NEVAREZ Order Number: [id number] Reading MD: Measurements Intervals [place] Rate: 52 P: 56 SD: 180 QRS: 34 QRSD: 92 T: 29 QT: 456 QTc: 426 Interpretive Statements SINUS RHYTHM NORMAL ECG RI6.02 No previous ECG available for comparison
== END 2021-01-27 14:00 | disposition home or self-care (01) ==
LOC: ER 11:44
DX: R53.1 Weakness (principal); I10 Essential (primary) hypertension; F41.9 Anxiety disorder, unspecified; E78.00 Pure hypercholesterolemia, unspecified; Z90.710 Acquired absence of both cervix and uterus
CPT/HCPCS: 36415; 80053; 81001; 85025; 93005; 99285

== ENCOUNTER 2021-02-07 11:54 | Emergency (ER) | payer MEDICARE ==
[~2021-02-07] VITALS: Ht 172.7 cm; Wt 83.9 kg
[2021-02-07 13:50] LABS: BILIRUBIN,URINE NEGATIVE (NEG); CLARITY,URINE CLEAR; COLOR,URINE YELLOW; NITRITE,URINE NEGATIVE (NEG); PROTEIN,URINE NEGATIVE (NEG-TRACE); UROBILINOGEN,URINE 0.2 mg/dL (0.2 mg/dL)
[2021-02-07 13:51] LABS: BASO % 1 % (0-3); EOS # 0.1 x10^3/uL (0.0-0.7); EOS % 1 % (0-3); HEMATOCRIT 40.1 % (36.0-47.0); HEMOGLOBIN 13.6 g/dL (12.0-15.5); LYMPH # 1.8 x10^3/uL (1.0-4.8); LYMPH % 29 % (24-48); MEAN CORPUSCULAR HEMOGLOBIN 32 pg (25-35); MEAN CORPUSCULAR HGB CONC 34 g/dL (31-37); MEAN CORPUSCULAR VOLUME 95 fL (79-100); MONO # 0.6 x10^3/uL (0.0-1.1); MONO % 10 % (0-9); NEUT # 3.8 x10^3/uL (1.8-7.7); NEUT % 59 % (31-73); PLATELET COUNT 148 x10^3/uL (140-400); RED BLOOD COUNT 4.21 x10^6/uL (3.50-5.40); RED CELL DISTRIBUTION WIDTH 14.5 % (11.5-14.5); WHITE BLOOD COUNT 6.4 x10^3/uL (4.0-11.0)
[2021-02-07 13:55] LABS: BACTERIA,URINE 0 /HPF (0-FEW); HYALINE CASTS, URINE FEW /HPF; RBC,URINE 0 /HPF (0-2); WBC,URINE OCC /HPF (0-4)
[2021-02-07 13:58] LABS: PROTHROMBIN TIME PATIENT 13.9 SEC (11.7-14.0)
[2021-02-07 14:00] LABS: CALCIUM 9.2 mg/dL (8.5-10.1); CREATININE 1.1 mg/dL (0.6-1.0); GFR 48.4; POTASSIUM 4.3 mmol/L (3.5-5.1)
[2021-02-07] MEDS ORDERED: IV NORMAL SALINE 1000ML BAG 1,000 ML IV ONE (14:00)
--- NOTE | 2021-02-07 14:04 | PHYS DOC ---
Past Medical History Past Medical History: Anxiety, High Cholesterol, Hypertension Past Surgical History: Hysterectomy Smoking Status: Never Smoker Alcohol Use: None Drug Use: None General Adult EDM: Chief Complaint: ABDOMINAL PAIN HPI: HPI: Patient is a 75 year old female who presents with states for the last 2 weeks she has had bilateral lower abdominal pain that she states " it is just there". When I asked her to tell me the quality of the pain is intermittent she stated that " she does not know but it is not sharp". Patient states that she is on medication that is for her bladder but she cannot remember her medication list. When I asked her if she is on any other medications for anything else for past medical history she states " it should be all in the computer". The only thing in the computer I can find for any bladder medication is Bactrim. She states that her primary care is told her that she is going to need surgery at some point for her bladder. She states she does not know why. She rates her pain currently at a 5 out of 10. She states the pain does radiate around to her back. She states she denies any urinary symptoms, problems urinating, Review of Systems: Review of Systems: Constitutional: Denies fever or chills. [] Eyes: Denies change in visual acuity. [] HENT: Denies nasal congestion or sore throat. [] Respiratory: Denies cough or shortness of breath. [] Cardiovascular: Denies chest pain or edema. [] GI: + abdominal pain, denies nausea, vomiting, bloody stools or diarrhea. [] : Denies dysuria. [] Musculoskeletal: +bilateral lower back pain or denies joint pain. [] Integument: Denies rash. [] Neurologic: Denies headache, focal weakness or sensory changes. [] Endocrine: Denies polyuria or polydipsia. [] Lymphatic: Denies swollen glands. [] Psychiatric: Denies depression or anxiety. [] Heart Score: C/O Chest Pain: No Risk Factors: Risk Factors: DM, Current or recent (<one month) smoker, HTN, HLP, family history of CAD, obesity. Risk Scores: Score 0 - 3: 2.5% MACE over next 6 weeks - Discharge Home Score 4 - 6: 20.3% MACE over next 6 weeks - Admit for Clinical Observation Score 7 - 10: 72.7% MACE over next 6 weeks - Early Invasive Strategies Allergies: Allergies: Allergies Coded Allergies Type Severity Reaction Last Updated Verified No Known Drug Allergies 02/16/18 No Physical Exam: PE: Constitutional: Well developed, well nourished, no acute distress, non-toxic appearance. [] HENT: Normocephalic, atraumatic, bilateral external ears normal, oropharynx moist, no oral exudates, nose normal. [] Eyes: PERRLA, EOMI, conjunctiva normal, no discharge. [] Neck: Normal range of motion, no tenderness, supple, no stridor. [] Cardiovascular:Heart rate regular rhythm, no murmur [] Lungs & Thorax: Bilateral breath sounds clear to auscultation [] Abdomen: Bowel sounds normal, soft, no tenderness, no masses, no pulsatile masses. [] Skin: Warm, dry, no erythema, no rash. [] Back: No tenderness, no CVA tenderness. [] Extremities: No tenderness, no cyanosis, no clubbing, ROM intact, no edema. [] Neurologic: Alert and oriented X 3, normal motor function, normal sensory function, no focal deficits noted. [] Psychologic: Affect normal, judgement normal, mood normal. Normal physical exam [] Current Patient Data: Vital Signs: Vital Signs Date Time Temp Pulse Resp B/P (MAP) Pulse Ox O2 Delivery O2 Flow Rate FiO2 02/07/21 13:06 98.2 71 17 136/73 (94) 96 Room Air 98.2 EKG: EK and read by Dr. Rai as sinus rhythm and no STEMI. Radiology/Procedures: Radiology/Procedures: [] Impression: [facility] [address] [place] [address] IMAGING REPORT Signed PATIENT: MIGEL PAUL ACCOUNT: [id number] : 1945 LOCATION: ER AGE: 75 SEX: F EXAM STATUS: REG ER ORD. PHYSICIAN: EVAN IGLESIAS APRN REASON: bilateral lower abd pain that wraps around to back PROCEDURE: CT ABD PELV W/ IV CONTRST ONLY PQRS Compliance Statement: One or more of the following individualized dose reduction techniques were utilized for this examination: 1. Automated exposure control 2. Adjustment of the mA and/or kV according to patient size 3. Use of iterative reconstruction technique CT abdomen/pelvis with contrast 02/07/2021 2:08 PM INDICATION: Bilateral lower abdominal pain COMPARISON: 03/25/2020 TECHNIQUE: Multiple axial CT images of the abdomen and pelvis were obtained after the intravenous administration of 60 mL Omnipaque 300. Coronal and sagittal reformats are provided. FINDINGS: There is mild interstitial changes identified at the lung bases. Mod erate-sized hiatal hernia. Heart size is within normal limits. Hypoattenuation the hepatic parenchyma suggestive of hepatic steatosis. Spleen, adrenal glands and pancreas are normal in appearance. Gallbladder is present without adjacent inflammation. The abdominal aorta is normal in course and caliber. There are no pathologically enlarged lymph nodes in the abdomen and pelvis. There is no abdominal free fluid. There is no free intraperitoneal air. The kidneys enhance symmetrically. There is no suspicious renal mass. There is no hydronephrosis. There are no suspected calculi within the kidneys, ureters or urinary bladder. There is a subcentimeter hypodensity in the inferior pole the right kidney measuring 6 mm which is too small characterize, however statistically favor to represent a simple cyst. Small and large bowel are normal in caliber. There is no evidence for bowel obstruction. There are no pericolonic inflammatory changes. Appendix is not definitively visualized. No pericecal inflammatory changes are identified. Urinary bladder is within normal limits. Distention. No suspicious pelvic mass status post hysterectomy. Moderate to advanced facet arthropathy is noted within the lumbar spine. No suspicious osseous lesions are identified. Multilevel spondylolisthesis. Advanced degenerative disc disease at T12-L1 with disc height loss and endplate sclerosis with vacuum disc phenomena. IMPRESSION: 1. Mild hepatic steatosis. 2. Moderate hiatal hernia. 3. No bowel obstruction or inflammation. Appendix is not definitively visualized. No pericecal inflammatory changes are identified. 4. No obstructive uropathy. Indeterminate 6 mm lesion in the interpolar right kidney and statistically represent simple cysts. Finding is stable since prior examination and presumed benign. Electronically signed by: Silvia Rodriguez MD (02/07/2021 2:40 PM) [id number] DICTATED and SIGNED BY: SILVIA RODRIGUEZ MD DATE: 02/07/21 [id number] Course & Med Decision Making: Course & Med Decision Making Pertinent Labs and Imaging studies reviewed. (See chart for details) See HPI. Alert and oriented x4. Ambulatory with a steady gait. Speaks in full complete sentences. Skin pink warm and dry. Patient has bilateral lower a bdominal tenderness that she states feels more like a pressure. No CVA tenderness. Afebrile. Blood work and urinalysis are unremarkable. With reexamination patient is resting comfortably without severe pain. Patient denies any pain at this time. She is resting comfortably. Abdomen is soft and nontender at this time. Blood work is unremarkable. Urinalysis showed no infection. Patient is stable and in no distress. Patient is discharged home and she is to follow-up with her primary care provider. [] Dragon Disclaimer: Dragon Disclaimer: This electronic medical record was generated, in whole or in part, using a voice recognition dictation system. Departure Departure Impression: Primary Impression: Nonspecific abdominal pain Disposition: 01 DC HOME SELF CARE/HOMELESS Condition: STABLE Referrals: LEYLA BARNARD MD (PCP) Patient Instructions: Abdominal Pain (Nonspecific), Degenerative Disk Disease Additional Instructions: Follow-up with your primary care provider soon as possible. If anything worsens always return to the emergency room. Drink plenty of fluids and take all your medications as prescribed. EVAN IGLESIAS APRN Feb 07, 2021 14:04
[2021-02-07 14:07] LABS: ALBUMIN 3.7 g/dL (3.4-5.0); ALBUMIN/GLOBULIN RATIO 1.2 (1.0-1.7); TOTAL BILIRUBIN 0.4 mg/dL (0.2-1.0); TOTAL PROTEIN 6.7 g/dL (6.4-8.2)
[2021-02-07] MEDS ORDERED: IOHEXOL 300 MG/ML 100ML VIAL. ONE (14:15)
[2021-02-07] MEDS ORDERED: IOHEXOL 300 MG/ML 100ML VIAL. IV ONE (14:15)
[2021-02-07] MEDS ORDERED: CONTRAST GIVEN. MC PRN (14:30)
--- NOTE | 2021-02-07 14:42 | RAD ---
PQRS Compliance Statement: One or more of the following individualized dose reduction techniques were utilized for this examinat ion: 1. Automated exposure control 2. Adjustment of the mA and/or kV according to patient size 3. Use of iterative reconstruction technique CT abdomen/pelvis with contrast 02/07/2021 2:08 PM INDICATION: Bilateral lower abdominal pain COMPARISON: 03/25/2020 TECHNIQUE: Multiple axial CT images of the abdomen and pelvis were obtained after the intravenous adm inistration of 60 mL Omnipaque 300. Coronal and sagittal reformats are provided. FINDINGS: There is mild interstitial changes identified at the lung bases. Moderate-sized hiatal brigitte ia. Heart size is within normal limits. Hypoattenuation the hepatic parenchyma suggestive of hepatic steatosis. Spleen, adrenal glands and pancreas are normal in appearance. Gallbladder is present witho ut adjacent inflammation. The abdominal aorta is normal in course and caliber. There are no pathologi charity enlarged lymph nodes in the abdomen and pelvis. There is no abdominal free fluid. There is no f ree intraperitoneal air. The kidneys enhance symmetrically. There is no suspicious renal mass. There is no hydronephrosis. There are no suspected calculi within the kidneys, ureters or urinary bladder. There is a subcentimeter hypodensity in the inferior pole the right kidney measuring 6 mm which is to o small characterize, however statistically favor to represent a simple cyst. Small and large bowel a re normal in caliber. There is no evidence for bowel obstruction. There are no pericolonic inflammato ry changes. Appendix is not definitively visualized. No pericecal inflammatory changes are identified . Urinary bladder is within normal limits. Distention. No suspicious pelvic mass status post hysterec jorge alberto. Moderate to advanced facet arthropathy is noted within the lumbar spine. No suspicious osseous lesions are identified. Multilevel spondylolisthesis. Advanced degenerative disc disease at T12-L1 wi th disc height loss and endplate sclerosis with vacuum disc phenomena. IMPRESSION: 1. Mild hepatic steatosis. 2. Moderate hiatal hernia. 3. No bowel obstruction or inflammation. Appendix is not definitively visualized. No pericecal inflam matory changes are identified. 4. No obstructive uropathy. Indeterminate 6 mm lesion in the interpolar right kidney and statisticall y represent simple cysts. Finding is stable since prior examination and presumed benign. Electronically signed by: Kareen Hendrix MD (02/07/2021 2:40 PM) [id number]
[2021-02-07 15:01] VITALS: BP 142/81
== END 2021-02-07 15:09 | disposition home or self-care (01) ==
LOC: ER 11:54
DX: R10.31 Right lower quadrant pain (principal); R10.32 Left lower quadrant pain; M54.5 Low back pain; I10 Essential (primary) hypertension; E78.00 Pure hypercholesterolemia, unspecified; Z90.710 Acquired absence of both cervix and uterus
CPT/HCPCS: 36415; 74177; 80053; 81001; 83605; 83690; 84484; 85025; 85610; 93005; 96360; 99285; J7030; Q9967